=== PATIENT | female | born 1950 | race Caucasian/White ===

== ENCOUNTER → 2016-02-23 | Outpatient (CLI) | payer BC ==
[~2016-02-23] VITALS: Ht 165.1 cm; Wt 131.4 kg
[~2016-02-23] MED LIST: ACET-1311 PO; ALBU1AER9 INH; ATEN-173 PO; GABA1CAP5 PO; MELO15TA4 PO; MULTTAB PO; OMEG-112 PO; SIMV10TA5 PO; VSC/5 PO
[2016-02-23 15:09] VITALS: BP 118/81; PULSE 78; Ht 165.1 cm; Wt 131.4 kg
== END | disposition home or self-care (01) ==
LOC: C.NEUR 14:33
PROVIDERS: ATTEND Internal Medicine Pulmonary Disease
DX: G47.33 Obstructive sleep apnea (adult) (pediatric) (principal); J45.20 Mild intermittent asthma, uncomplicated; I10 Essential (primary) hypertension

== ENCOUNTER → 2016-05-06 | Outpatient (CLI) | payer BC | END | disposition home or self-care (01) | LOC: C.LABBC 09:07 | PROVIDERS: ATTEND Urology | DX: N20.0 Calculus of kidney (principal) ==

== ENCOUNTER → 2016-05-24 | Outpatient (CLI) | payer BC ==
--- NOTE | 2016-05-24 12:29 | DIAGNOSTIC IMAGING REPORT ---
CHEST 2 VIEWS ROUTINE HISTORY: SHORTNESS OF BREATH ON EXERTION COMPARISON: Chest 01/26/2015. FINDINGS: A few small stable linear scarlike densities at the left lung base. The lungs are otherwise clear. The heart is top normal in size. No pleural effusions. No pneumothorax. IMPRESSION: No significant change compared to the prior study. No acute process. Electronically signed by: Michi Delgadillo M.D. 05/24/2016 12:28 PM Dictated Date/Time: 05/24/2016 12:26 PM
[2016-05-24 13:59] LABS: BASO % 0.3 %; BASO ABS # 0.03 K/uL (0-0.2); COMPLETE YES; EOS % 3.5 %; IG% 0.1 %; LYMPH % 29.9 %; LYMPH ABS # 2.65 K/uL (1.2-3.4); MEAN CELL VOLUME 94.4 fL (80-100); MEAN CORPUSCULAR HEMOGLOBIN 32.1 pg (25-34); MEAN PLATELET VOLUME 11.2 fL (7.4-10.4); MONO % 6.9 %; NEUT % 59.3 %; PLATELET COUNT 228 K/uL (130-400); RED BLOOD COUNT 4.45 M/uL (4.2-5.4); WHITE BLOOD COUNT 8.87 K/uL (4.8-10.8)
[2016-05-24 14:13] LABS: ALT/SGPT 30 U/L (12-78); BLOOD UREA NITROGEN 23 mg/dl (7-18); BUN/CREATININE RATIO 29.6 (10-20); CALCIUM 8.9 mg/dl (8.5-10.1); CARBON DIOXIDE 27 mmol/L (21-32); CHLORIDE 107 mmol/L (98-107); CREATININE 0.76 mg/dl (0.60-1.20); GLUCOSE 75 mg/dl (70-99); POTASSIUM 4.1 mmol/L (3.5-5.1); SODIUM 141 mmol/L (136-145)
[2016-05-24 14:16] LABS: ALKALINE PHOSPHATASE 115 U/L (45-117); AST/SGOT 19 U/L (15-37)
== END | disposition home or self-care (01) ==
LOC: C.RADBC 11:51
PROVIDERS: ATTEND Family Medicine
DX: R06.02 Shortness of breath (principal); G47.33 Obstructive sleep apnea (adult) (pediatric)

== ENCOUNTER → 2016-05-24 | Outpatient (CLI) | payer BC ==
[~2016-05-24] VITALS: Ht 164.5 cm; Wt 132.2 kg
[2016-05-24 14:53] VITALS: BP 137/88; PULSE 80; Ht 164.5 cm; Wt 132.2 kg
== END | disposition home or self-care (01) ==
LOC: C.NEUR 12:30
PROVIDERS: ATTEND Internal Medicine Pulmonary Disease
DX: G47.33 Obstructive sleep apnea (adult) (pediatric) (principal)

== ENCOUNTER → 2016-06-06 | Outpatient (CLI) | payer BC | END | disposition home or self-care (01) | LOC: C.LAB 12:26 | PROVIDERS: ATTEND Physician Assistant | DX: R06.02 Shortness of breath (principal) ==

== ENCOUNTER → 2016-07-26 | Outpatient (CLI) | payer BC ==
--- NOTE | 2016-07-26 09:06 | DIAGNOSTIC IMAGING REPORT ---
KUB CLINICAL HISTORY: 592.0, N20.0, 788.63, R39.15 nephrocalcinosis COMPARISON STUDY: 11/25/2015 FINDINGS: The soft tissues, psoas shadows, renal outlines and intestinal gas pattern appear normal. There is no evidence for bowel obstruction. No abnormal abdominal calcifications are seen. IMPRESSION: Normal study. Electronically signed by: Hernan Shi M.D. 07/26/2016 9:05 AM Dictated Date/Time: 07/26/2016 9:01 AM
== END | disposition home or self-care (01) ==
LOC: C.RAD 08:25
PROVIDERS: ATTEND Urology
DX: N20.0 Calculus of kidney (principal); R39.15 Urgency of urination

== ENCOUNTER → 2016-09-07 | Outpatient (CLI) | payer BC ==
--- NOTE | 2016-09-07 15:43 | MAMMOGRAPHY REPORT ---
BILATERAL DIGITAL SCREENING MAMMOGRAM WITH CAD: 09/07/2016 CLINICAL HISTORY: Routine screening. Patient has no complaints. TECHNIQUE: Bilateral CC, MLO and left cleavage views were obtained. Current study was also evaluated with a Computer Aided Detection (CAD) system. COMPARISON: Comparison is made to exams dated: 08/31/2015 mammogram, 08/27/2014 mammogram, 08/26/2013 [facility] mogram, 08/24/2012 mammogram, 08/17/2011 mammogram, and 08/09/2010 mammogram - [facility] er. BREAST COMPOSITION: The tissue of both breasts is almost entirely fatty. FINDINGS: There are multiple circumscribed subcentimeter masses scattered in the breasts, stable comp ared to prior mammograms. There is a stable grouping of benign-appearing microcalcifications in the anterior retroareolar left breast. No new suspicious mass, architectural distortion or cluster of mi crocalcifications is seen. IMPRESSION: ACR BI-RADS CATEGORY 1: NEGATIVE There is no mammographic evidence of malignancy. A 1 year screening mammogram is recommended. The pa tient will receive written notification of the results. Approximately 10% of breast cancers are not detected with mammography. A negative mammographic report should not delay biopsy if a clinically suggestive mass is present. Maranda Cox M.D. ay/:09/07/2016 14:47:46 Director Of Engineering: Elly DUNNE)(Malia), [facility] letter sent: Normal 1/2 BI-RADS Code: ACR BI-RADS Category 1: Negative
== END | disposition home or self-care (01) ==
LOC: C.MAMM 09:25
PROVIDERS: ATTEND Physician Assistant
DX: Z12.31 Encounter for screening mammogram for malignant neoplasm of breast (principal)

== ENCOUNTER → 2016-10-17 | Outpatient (CLI) | payer BC ==
[2016-10-17 17:28] LABS: ALT/SGPT 23 U/L (12-78); AST/SGOT 16 U/L (15-37); BLOOD UREA NITROGEN 26 mg/dl (7-18); BUN/CREATININE RATIO 29.9 (10-20); CALCIUM 8.9 mg/dl (8.5-10.1); CARBON DIOXIDE 26 mmol/L (21-32); CHLORIDE 110 mmol/L (98-107); CREATININE 0.87 mg/dl (0.60-1.20); GLUCOSE 120 mg/dl (70-99); POTASSIUM 3.8 mmol/L (3.5-5.1); SODIUM 143 mmol/L (136-145)
[2016-10-17 17:40] LABS: ALKALINE PHOSPHATASE 111 U/L (45-117); CHOLESTEROL 147 mg/dl (0-200); CHOLESTEROL/HDL RATIO 2.6; HDL CHOLESTEROL 56 mg/dl; LDL CHOLESTEROL CALCULATED 70 mg/dl; TRIGLYCERIDES 107 mg/dl (0-150); VERY LOW DENSITY LIPOPROT CALC 21 mg/dl
== END | disposition home or self-care (01) ==
LOC: C.LABBC 14:57
PROVIDERS: ATTEND Physician Assistant Medical
DX: Z00.00 Encounter for general adult medical examination without abnormal findings (principal); I10 Essential (primary) hypertension; E78.5 Hyperlipidemia, unspecified; E55.9 Vitamin D deficiency, unspecified

== ENCOUNTER → 2016-11-22 | Outpatient (CLI) | payer BC ==
[~2016-11-22] VITALS: Ht 164.5 cm; Wt 121.3 kg
[2016-11-22 13:58] VITALS: BP 118/60; PULSE 79; Ht 164.5 cm; Wt 121.3 kg
== END | disposition home or self-care (01) ==
LOC: C.NEUR 13:30
PROVIDERS: ATTEND Internal Medicine Pulmonary Disease
DX: G47.33 Obstructive sleep apnea (adult) (pediatric) (principal); E66.01 Morbid (severe) obesity due to excess calories

== ENCOUNTER → 2017-03-20 | Outpatient (CLI) | payer BC ==
[2017-03-20 14:51] LABS: ALBUMIN 3.6 gm/dl (3.4-5.0); ALT/SGPT 25 U/L (12-78); BLOOD UREA NITROGEN 27 mg/dl (7-18); CALCIUM 8.9 mg/dl (8.5-10.1); CARBON DIOXIDE 26 mmol/L (21-32); CHOLESTEROL 152 mg/dl (0-200); CREATININE 0.77 mg/dl (0.60-1.20); GLUCOSE 99 mg/dl (70-99); POTASSIUM 3.8 mmol/L (3.5-5.1); SODIUM 142 mmol/L (136-145)
[2017-03-20 14:54] LABS: ALKALINE PHOSPHATASE 97 U/L (45-117); AST/SGOT 17 U/L (15-37); LDL CHOLESTEROL CALCULATED 70 mg/dl; TOTAL PROTEIN 7.4 gm/dl (6.4-8.2)
== END | disposition home or self-care (01) ==
LOC: C.LABBC 10:29
PROVIDERS: ATTEND Physician Assistant Medical
DX: Z00.00 Encounter for general adult medical examination without abnormal findings (principal); I10 Essential (primary) hypertension; E78.5 Hyperlipidemia, unspecified; N25.81 Secondary hyperparathyroidism of renal origin; E55.9 Vitamin D deficiency, unspecified; R60.9 Edema, unspecified

== ENCOUNTER → 2017-06-02 | Day surgery (SDC) | payer BC ==
[2017-05-16 14:00] VITALS: BMI 42.0
[~2017-06-02] VITALS: Ht 165.1 cm; Wt 114.5 kg
[~2017-06-02] MED LIST changes: -ACET-1311 PO; -ALBU1AER9 INH; +AMLO2.5T PO; -ATEN-173 PO; +ESCI10TA17 PO; +GABA-1220 PO; -GABA1CAP5 PO; +LIDOCAINE HCL 2% 2 ML VIAL (20MG/ML) ONE; -MELO15TA4 PO; +MELO7.5T5 PO; +MULT1CHW39 PO; -MULTTAB PO; +NALT1TAB14 PO; -OMEG-112 PO; +OMEG10007 PO; +POTATAB13 PO; +PROPOFOL IV EMULSION 10 MG/ML 20 ML VIAL IV ONE; +SODIUM CHLORIDE 0.9% 500ML 500 ML IV ONE; +SOLI10TA2 PO; +VITAMIN B12 PO; +VITAMIN D3 PO; +VNTHFA/IN INH; -VSC/5 PO
[2017-06-02 09:48] VITALS: Ht 165.1 cm; Wt 114.5 kg
--- NOTE | 2017-06-02 11:17 | Endo History and Physical ---
History & Physical Date of Service: Jun 02, 2017. Chief Complaint: SCREENING Referring Physician: PERRI BEDOLLA History of Present Illness 67 yo CF who presents for screening colonoscopy. Past Medical History Arthritis, Asthma, High Cholesterol, Hypertension, Kidney Disease Past Surgical History Hx Cardiac Surgery: No Hx Internal Defibrillator: No Hx Pacemaker: No Hx Abdominal Surgery: Yes (GASTRIC BYPASS, INGUINAL HERNIA) Hx of Implantable Prosthesis: No Hx Post-Op Nausea and Vomiting: No Hx Cancer Surgery: No Hx Thoracic Surgery: No Hx Orthopedic: Yes (LEFT TKA, RT/LEFT WRIST SURGERY) Hx Urinary Tract Surgery: Yes (BLADDER TACK AND ANTERIAL RECONSTRUCTION, CYSTO STENT PLACED, ESWL) Family History None Social History Smoking Status: Never Smoker Hx Substance Use: No Hx Alcohol Use: No Allergies Coded Allergies: Sulfamethoxazole w/Trimethoprim (Verified Allergy, Intermediate, HIVES, ) Current Medications Reported Home Medications Medications Dose Route/Sig Max Daily Dose Days Date Category Urocit-K 15 (Potassium Citrate (Alkalinizer) 15 Meq Tab 15 Meq PO QPM 05/16/17 Reported Ventolin Hfa (Albuterol) 200 Puffs/84411 Mcg Aers 2-4 Puffs INH Q6H PRN 05/16/17 Reported Lexapro (Escitalopram Oxalate) 10 Mg Tab 10 Mg PO QAM 05/16/17 Reported [Vitamin B12] 1 Tab PO QPM 05/16/17 Reported Multivitamin Gummies Wome (Multiple Vitamins W/ Minerals) 1 Chw Chw 1 Dose PO QPM 05/16/17 Reported [Vitamin D3] 4 Tab PO QPM 05/16/17 Reported Vesicare (Solifenacin) 10 Mg Tab 10 Mg PO QPM 05/16/17 Reported Norvasc (Amlodipine Besylate) 2.5 Mg Tab 2.5 Mg PO QPM 05/16/17 Reported Mobic (Meloxicam) 7.5 Mg Tab 7.5 Mg PO QAM 05/16/17 Reported Contrave 8-90 mg (Naltrexone HCl-Bupropion HCl) 1 Tab Tab 2 Tab PO BID 05/16/17 Reported Neurontin (Gabapentin) 400 Mg Cap 400 Mg PO TID 05/16/17 Reported Junior-3 (Fish Oil) 1 Ea Cap 1 Cap PO BID 05/16/17 Reported Zocor (Simvastatin) 10 Mg Tab 10 Mg PO QPM 12/07/14 Reported Vital Signs Weight (Kilograms): 114.55 Height (Feet): 5 Height (Inches): 5 Date Time Temp Pulse Resp B/P (MAP) Pulse Ox O2 Delivery O2 Flow Rate FiO2 06/02/17 09:54 36.7 65 18 144/86 (105) 95 Room Air Physical Exam General Appearance: WD/WN, no apparent distress Respiratory/Chest: Auscultation: breath sounds normal Cardiovascular: Heart Auscultation: RRR Abdomen: Bowel Sounds: normal Inspection & Palpation: soft, non-distended, no tenderness, guarding & rebound Assessment and Plan Assessment: 67 yo CF who presents for screening colonoscopy. Plan: Proceed with colonoscopy.
--- NOTE | 2017-06-02 11:47 | Discharge Instructions ---
Endoscopy Patient Instructions Date / Procedure(s) Performed Jun 02, 2017. Colonoscopy Allergy Information Coded Allergies: Sulfamethoxazole w/Trimethoprim (Verified Allergy, Intermediate, HIVES, ) Discharge Date / Findings Jun 02, 2017. Colon polyp Diverticulosis Internal hemorrhoids Medication Instructions Stopped Medication(s): FISH OIL VITAMINS OK to resume all medications today as prescribed Reported Home Medications Medications Dose Route/Sig Max Daily Dose Days Date Category Urocit-K 15 (Potassium Citrate (Alkalinizer) 15 Meq Tab 15 Meq PO QPM 05/16/17 Reported Ventolin Hfa (Albuterol) 200 Puffs/04303 Mcg Aers 2-4 Puffs INH Q6H PRN 05/16/17 Reported Lexapro (Escitalopram Oxalate) 10 Mg Tab 10 Mg PO QAM 05/16/17 Reported [Vitamin B12] 1 Tab PO QPM 05/16/17 Reported Multivitamin Gummies Wome (Multiple Vitamins W/ Minerals) 1 Chw Chw 1 Dose PO QPM 05/16/17 Reported [Vitamin D3] 4 Tab PO QPM 05/16/17 Reported Vesicare (Solifenacin) 10 Mg Tab 10 Mg PO QPM 05/16/17 Reported Norvasc (Amlodipine Besylate) 2.5 Mg Tab 2.5 Mg PO QPM 05/16/17 Reported Mobic (Meloxicam) 7.5 Mg Tab 7.5 Mg PO QAM 05/16/17 Reported Contrave 8-90 mg (Naltrexone HCl-Bupropion HCl) 1 Tab Tab 2 Tab PO BID 05/16/17 Reported Neurontin (Gabapentin) 400 Mg Cap 400 Mg PO TID 05/16/17 Reported [place]-3 (Fish Oil) 1 Ea Cap 1 Cap PO BID 05/16/17 Reported Zocor (Simvastatin) 10 Mg Tab 10 Mg PO QPM 12/07/14 Reported Provider Instructions Activity Restrictions - No exercising or heavy lifting for 24 hours. - Do not drink alcohol the day of the procedure. - Do not drive a car or operate machinery until the day after the procedure. - Do not make any important decisions or sign important papers in 24 hours after the procedure. Following Day: - Return to full activity which may include returning to work/school. Diet Start your diet with liquids and light foods (jello, soup, juice, toast). Then eat your usual diet if not nauseated. Treatment For Common After Affects For mild abdominal pain, bloating, or excessive gas: - Rest - Eat lightly - Lie on right side Follow-Up Information Follow-up with PERRI BEDOLLA as scheduled Anesthesia Information What You Should Know You have had a procedure that required some medicine to reduce anxiety and discomfort. This treatment is called moderate sedation. After receiving the treatment, you may be sleepy, but you will be able to breathe on your own. The effects of the treatment may last for several hours. Follow these instructions along with Activity/Diet recommendations noted above: * Do NOT do anything where dizziness or clumsiness would be dangerous. * Rest quietly at home today, then you can be up and about tomorrow. * Have a responsible person stay with you the rest of today. * You may have had an I.V. today. If so, you may take the dressing off later today. Recommendations Call your doctor if: * Trouble breathing * Continuous vomiting for more than 24 hours * Temperature above 101 degrees * Severe abdominal pain or bloating * Pain not relieved by pain medicine ordered * There is increased drainage or redness from any incision * A large amount of rectal bleeding greater than 2-3 tablespoons. (If you had a polyp/s removed or have hemorrhoids, a small amount of blood - from the rectum is to be expected.) * You have any unanswered questions or concerns. IN THE EVENT OF A SERIOUS EMERGENCY, GO TO THE NEAREST EMERGENCY ROOM Your discharge instructions were prepared by provider Matt Pena. Patient Instructions Signature Page Ana Kunz Patient (or Guardian) Signature/Date: I have read and understand the instructions given to me by my caregivers. Caregiver/RN/Doctor Signature/Date: The above-named patient and/or guardian has received patient instructions on this date. + Original Patient Signature Page (only) stays with chart. Please make copy for patient.
--- NOTE | 2017-06-02 11:51 | GI REPORT ---
Procedure Date: 06/02/2017 11:16 AM Procedure: Colonoscopy Indications: Screening for colorectal malignant neoplasm Medicines: Monitored Anesthesia Care Complications: No immediate complications. Estimated Blood Loss: Estimated blood loss: none. Procedure: Pre-Anesthesia Assessment: - Prior to the procedure, a History and Physical was performed, and patient medications and allergies were reviewed. The patient's tolerance of previous anesthesia was also reviewed. The risks and benefits of the procedure and the sedation options and risks were discussed with the patient. All questions were answered, and informed consent was obtained. Prior Anticoagulants: The patient has taken no previous anticoagulant or antiplatelet agents. ASA Grade Assessment: III - A patient with severe systemic disease. After reviewing the risks and benefits, the patient was deemed in satisfactory condition to undergo the procedure. After I obtained informed consent, the scope was passed under direct vision. Throughout the procedure, the patient's blood pressure, pulse, and oxygen saturations were monitored continuously. The Scope was introduced through the anus and advanced to the terminal ileum. The colonoscopy was performed without difficulty. The patient tolerated the procedure well. The quality of the bowel preparation was good. The terminal ileum, ileocecal valve, appendiceal orifice, and rectum were photographed. Findings: The perianal and digital rectal examinations were normal. A 5 mm polyp was found in the ascending colon. The polyp was sessile. The polyp was removed with a cold snare. Resection and retrieval were complete. Multiple small-mouthed diverticula were found in the sigmoid colon. Non-bleeding internal hemorrhoids were found during retroflexion. The hemorrhoids were small. Impression: - One 5 mm polyp in the ascending colon, removed with a cold snare. Resected and retrieved. - Diverticulosis in the sigmoid colon. - Non-bleeding internal hemorrhoids. Recommendation: - Resume previous diet. - Continue present medications. - Repeat colonoscopy for surveillance based on pathology results. - Return to primary care physician as previously scheduled. Matt Pena, 06/02/2017 11:51:20 AM This report has been signed electronically. Note Initiated On: 06/02/2017 11:16 AM I attest to the content of the Intraoperative Record and orders documented therein, exceptions below
[2017-06-02 12:18] VITALS: BP 138/79; PULSE 58; O2SAT 97
--- NOTE | 2017-06-02 12:20 | Anesthesiology Progress Note ---
Anesthesia Post Op Note Date & Time Jun 02, 2017 at 12:20 Vital Signs Pain Intensity: 0 Vital Signs Past 12 Hours Date Time Temp Pulse Resp B/P (MAP) Pulse Ox O2 Delivery O2 Flow Rate FiO2 06/02/17 12:03 60 16 130/40 (70) 97 Room Air 06/02/17 11:48 56 12 101/60 (74) 95 Room Air 06/02/17 09:54 36.7 65 18 144/86 (105) 95 Room Air Notes Mental Status: alert / awake / arousable, participated in evaluation Pt Amnestic to Procedure: Yes Nausea / Vomiting: adequately controlled Pain: adequately controlled Airway Patency, RR, SpO2: stable & adequate BP & HR: stable & adequate Hydration State: stable & adequate Anesthetic Complications: no major complications apparent
== END | disposition home or self-care (01) ==
LOC: C.GI 09:29
PROVIDERS: ATTEND Internal Medicine
DX: Z12.11 Encounter for screening for malignant neoplasm of colon (principal); D12.2 Benign neoplasm of ascending colon; K57.30 Diverticulosis of large intestine without perforation or abscess without bleeding; K64.8 Other hemorrhoids; J45.909 Unspecified asthma, uncomplicated; E78.00 Pure hypercholesterolemia, unspecified; I10 Essential (primary) hypertension; Z98.84 Bariatric surgery status; Z98.890 Other specified postprocedural states; Z96.652 Presence of left artificial knee joint; Z88.2 Allergy status to sulfonamides; E66.01 Morbid (severe) obesity due to excess calories; Z68.41 Body mass index [BMI] 40.0-44.9, adult

== ENCOUNTER → 2017-09-11 | Outpatient (CLI) | payer BC ==
[~2017-09-11] MED LIST changes: -LIDOCAINE HCL 2% 2 ML VIAL (20MG/ML) ONE; -PROPOFOL IV EMULSION 10 MG/ML 20 ML VIAL IV ONE; -SODIUM CHLORIDE 0.9% 500ML 500 ML IV ONE
--- NOTE | 2017-09-12 07:31 | MAMMOGRAPHY REPORT ---
BILATERAL DIGITAL SCREENING MAMMOGRAM TOMOSYNTHESIS WITH CAD: 09/11/2017 CLINICAL HISTORY: Routine screening. Patient has no complaints. TECHNIQUE: The study was acquired using full field digital technology and interpreted from soft copy. Breast tomosynthesis in addition to standard 2D mammography was performed. Current study was also ev aluated with a Computer Aided Detection (CAD) system. COMPARISON: Comparison is made to exams dated: 09/07/2016 mammogram, 08/31/2015 mammogram, 08/27/2014 [facility] mmogram, 08/26/2013 mammogram, 08/24/2012 mammogram, and 08/17/2011 mammogram - [facility] er. BREAST COMPOSITION: The tissue of both breasts is almost entirely fatty. FINDINGS: There are stable circumscribed subcentimeter masses in the right upper outer quadrant, most likely intramammary lymph nodes. There is a stable grouping of benign-appearing calcifications in t he retroareolar left breast, unchanged dating back to at least 2007, therefore likely benign. No susp icious mass, architectural distortion or cluster of microcalcifications is seen. IMPRESSION: ACR BI-RADS CATEGORY 1: NEGATIVE There is no mammographic evidence of malignancy. A 1 year screening mammogram is recommended.( 019) The patient will receive written notification of the results. Some breast cancers are not detected with mammography. A negative mammographic report should not rashid y biopsy if a clinically suggestive mass is present. Maranda Cox M.D. ay/:09/11/2017 16:22:27 Diesel Bus Mechanic: RT Heath(Ovi)(Malia)([place]), [facility] letter sent: Normal 1/2 BI-RADS Code: ACR BI-RADS Category 1: Negative
== END | disposition home or self-care (01) ==
LOC: C.MAMM 09:18
PROVIDERS: ATTEND Physician Assistant Medical
DX: Z12.31 Encounter for screening mammogram for malignant neoplasm of breast (principal)

== ENCOUNTER → 2017-09-19 | Outpatient (CLI) | payer BC ==
[2017-09-19 13:15] LABS: ALBUMIN 3.9 gm/dl (3.4-5.0); ALKALINE PHOSPHATASE 96 U/L (45-117); ALT/SGPT 26 U/L (12-78); AST/SGOT 21 U/L (15-37); BLOOD UREA NITROGEN 32 mg/dl (7-18); CALCIUM 9.3 mg/dl (8.5-10.1); CARBON DIOXIDE 27 mmol/L (21-32); CREATININE 0.88 mg/dl (0.60-1.20); GLUCOSE 90 mg/dl (70-99); POTASSIUM 4.2 mmol/L (3.5-5.1); SODIUM 141 mmol/L (136-145); TOTAL PROTEIN 7.5 gm/dl (6.4-8.2)
== END | disposition home or self-care (01) ==
LOC: C.LABBC 10:16
PROVIDERS: ATTEND Nurse Practitioner Adult Health
DX: I10 Essential (primary) hypertension (principal); E78.5 Hyperlipidemia, unspecified